=== PATIENT | male | born 1940 | race Caucasian/White ===

== ENCOUNTER 2016-12-18 11:05 | Outpatient (CLI) ==
[2016-01-04 13:42] VITALS: BMI 36.5
--- NOTE | 2016-12-18 11:57 | US ---
EXAM: Limited abdominal ultrasound. History: Abdominal wall mass. Comparison: CT abdomen pelvis 05/13/2013 Technique: Multiple sonographic images through the abdomen were obtained. Color duplex Doppler was used to interrogate vascular flow. Findings / impression: Within the subcutaneous soft tissues of the right mid anterior abdominal wall , there are two fairly well circumscribed structures with the largest measuring 4.1 cm that probably represent lipomas. No suspicious abnormalities.
== END 2016-12-18 11:06 | disposition home or self-care (01) ==
LOC: RAD 11:05
PROVIDERS: ATTEND Emergency Medicine
DX: D17.1 Benign lipomatous neoplasm of skin and subcutaneous tissue of trunk (principal)

== ENCOUNTER → 2017-07-21 | Outpatient (POV) | payer OTHER ==
[2016-01-04 13:42] VITALS: BMI 36.5
== END ==
LOC: OUTPT 00:01
PROVIDERS: ATTEND Otolaryngology
DX: H91.90 Unspecified hearing loss, unspecified ear (principal)
CPT/HCPCS: 92557; 92567

== ENCOUNTER 2017-08-11 08:41 | Outpatient (CLI) | payer OTHER ==
[2016-01-04 13:42] VITALS: BMI 36.5
[2017-08-11 08:58] LABS: BASOPHILS # (AUTO) 0.1 K/uL (0-0.2); BASOPHILS % (AUTO) 1.7 % (0.0-3.0); EOSINOPHILS # (AUTO) 0.6 K/ul (0.0-0.7); EOSINOPHILS % (AUTO) 13.1 % (0.0-7.0); HEMATOCRIT 44.1 % (42.0-52.0); HEMOGLOBIN 14.7 g/dl (14.0-18.0); IMMATURE GRANULOCYTE % (AUTO) 0.4 % (0.0-5.0); LYMPHOCYTES # (AUTO) 1.3 K/uL (0.60-3.4); LYMPHOCYTES % (AUTO) 25.9 (10.0-50.0); MEAN CORPUSCULAR HGB CONC 33.3 (31.8-35.4); MONOCYTES # (AUTO) 0.8 K/uL (0.4-2.0); MONOCYTES % (AUTO) 16.2 (0-10); NEUTROPHILS # (AUTO) 2.1 K/ul (2.0-6.9); NEUTROPHILS % (AUTO) 42.7; PLATELET COUNT 173 10^3/uL (140-440); RED BLOOD COUNT 4.74 10^6/ul (4.70-6.10); WHITE BLOOD COUNT 4.82 K/ul (4.2-10.2)
[2017-08-11 09:39] LABS: ALBUMIN 3.9 g/dL (3.4-5.0); ALBUMIN/GLOBULIN RATIO 1.3; ANION GAP 13.3; BILIRUBIN,TOTAL 0.63 mg/dL (0.00-1.20); BUN/CREATININE RATIO 15.88; CALCIUM 9.9 mg/dL (8.2-10.2); CHOL/HDL RATIO 3.4 (4.5-6.4); CREATININE 1.07 mg/dL (0.60-1.10); POTASSIUM 5.3 mmol/L (3.5-5.1); TOTAL PROTEIN 6.9 g/dL (5.8-8.1)
== END 2017-08-11 08:42 | disposition home or self-care (01) ==
LOC: LAB 08:41
PROVIDERS: ATTEND Emergency Medicine
DX: E78.5 Hyperlipidemia, unspecified (principal); I10 Essential (primary) hypertension; E66.9 Obesity, unspecified
CPT/HCPCS: 36415; 80053; 80061; 84443; 85025

== ENCOUNTER 2018-02-09 12:15 | Outpatient (CLI) ==
[2016-01-04 13:42] VITALS: BMI 36.5
--- NOTE | 2018-02-09 13:15 | DI ---
EXAM: PA and lateral views of the chest HISTORY: Shortness of breath COMPARISON: Chest x-ray 04/15/2017 FINDINGS: The cardiomediastinal silhouette is normal. There is no pneumothorax or pleural effusion. There is no consolidation, nodule or mass. Lungs are hyperinflated. The osseous structures demons trate mild scattered degenerative disease. IMPRESSION: Lungs are hyperinflated with no acute consolidation.
== END 2018-02-09 12:16 | disposition home or self-care (01) ==
LOC: LAB 12:15
PROVIDERS: ATTEND Emergency Medicine
DX: R06.2 Wheezing (principal); I10 Essential (primary) hypertension; E66.9 Obesity, unspecified; E78.5 Hyperlipidemia, unspecified
CPT/HCPCS: 36415; 80053; 80061; 83880; 84443; 85025

== ENCOUNTER 2018-11-16 14:52 | Outpatient (POV) | payer OTHER ==
[2016-01-04 13:42] VITALS: BMI 36.5
== END 2018-11-16 17:00 ==
LOC: OUTPT 14:52
PROVIDERS: ATTEND Otolaryngology
DX: H91.90 Unspecified hearing loss, unspecified ear (principal)
CPT/HCPCS: 92557; 92567

== ENCOUNTER 2019-03-04 12:50 | Outpatient (CLI) ==
[2016-01-04 13:42] VITALS: BMI 36.5
--- NOTE | 2019-03-04 13:16 | DI ---
EXAM: Three views of the left shoulder. History: Left shoulder pain. Findings: No acute fracture or dislocation. Mild narrowing of the left AC joint and left glenohumer al joint. Sclerosis and cystic change involving the superior lateral aspect of the humeral head. No radiopaque foreign bodies. Impression: 1. No acute osseous abnormality. 2. Mild arthritis. 3. Rotator cuff disease
--- NOTE | 2019-03-04 13:18 | DI ---
EXAM: Six views of the cervical spine. History: Cervical spine pain and cervical stenosis. Comparison: CT cervical spine 01/04/2016 Findings: No acute fracture or subluxation of the cervical spine. No prevertebral soft tissue swell ing. Predental space is not widened. Mild to moderate multilevel disc space narrowing with endplate sclerosis and osteophyte formation. Multilevel bilateral bony neural foraminal narrowing secondary to uncovertebral and facet hypertrophy which is moderate to severe. Impression: 1. No acute osseous abnormality of the cervical spine. 2. Degenerative changes. 3. If symptoms persist, recommend cervical spine MRI.
== END 2019-03-04 12:51 | disposition home or self-care (01) ==
LOC: RAD 12:50
PROVIDERS: ATTEND Family Medicine
DX: M25.512 Pain in left shoulder (principal); G89.29 Other chronic pain; M48.02 Spinal stenosis, cervical region